=== PATIENT | female | born 1945 | race Caucasian/White ===

== ENCOUNTER 2019-01-30 15:29 | Observation (INO) ==
[2019-01-30] MEDS ORDERED: DUONEB (A & A) INH ONE (15:38)
[2019-01-30] MEDS ORDERED: SOLU-MEDROL IV ONE (15:39)
--- NOTE | 2019-01-30 15:45 | PROVIDER DOCUMENTATION ---
HPI-Respiratory General - General Chief Complaint: Shortness of Breath Stated Complaint: SOB Time Seen by Provider: 01/30/19 15:34 Source: patient Allergies/Adverse Reactions: Patient Allergies Allergy/AdvReac Type Severity Reaction Status Date / Time prednisone AdvReac "MAKES ME Verified 10/08/18 15:16 CRAZY" Home Medications: Home Medication List Medication Instructions Recorded Confirmed Last Taken Type Fluoxetine [Prozac] 20 mg PO DAILY 10/03/18 01/30/19 Unknown History Lorazepam [Ativan] 0.5 mg PO DIRECTED 10/03/18 10/08/18 Unknown History Albuterol Sulfate [Proventil Hfa] 2 puff IH Q4HR PRN #1 [id number] 10/08/1812/20 Unknown Rx Mirtazapine [Remeron] 30 mg PO HS 10/08/18 01/30/19 Unknown History Tramadol [Ultram] 50 mg PO Q6H PRN PRN 10/08/18 01/30/19 Unknown History - History of Present Illness-Resp Nature of Presenting Problem: 73yof present to ER via EMS with c/o SOB onset this morning. Pt on home O2 at 2L NC. Pt reports productive cough with yellow sputum. Denies fever. Denies CP. Quality of Pain: reports: none Onset/Duration: reports: this morning Cough Quality/Degree: reports: productive cough (yellow sputum) Current Respiratory Medication Therapy: Initiated see nurses note Associated Symptoms: reports: cough, nasal drainage, shortness of breath, wheezing. denies: fever/chills, hurts to breathe, hyperventilating Review of Systems - Adult - REVIEW OF SYSTEMS - ADULT Constitutional: reports: no symptoms reported. denies: chills, fever Eyes: reports: no symptoms reported Ears, Nose, Mouth & Throat: reports: no symptoms reported Cardiovascular: reports: no symptoms reported. denies: chest pain Respiratory: reports: see HPI, chronic cough, cough, dyspnea on exertion, shortness of breath, wheezing. denies: excessive sputum production, hemoptysis Gastrointestinal: reports: no symptoms reported. denies: diarrhea, nausea, vomiting Genitourinary: reports: no symptoms reported Musculoskeletal: reports: no symptoms reported Integumentary: reports: no symptoms reported Neurological: reports: no symptoms reported Psychiatric: reports: no symptoms reported Endocrine: reports: no symptoms reported Hematologic/Lymphatic: reports: no symptoms reported Allergic/Immunologic: reports: no symptoms reported All Other Systems: Reviewed and Negative Past History - Adult - PAST MEDICAL HISTORY-ADULT Review of Records: reports: Old Records Reviewed, Nursing Assessment Review, Medications Reviewed Major Childhood Illnesses: reports: denies history Cardiovascular: reports: HTN Respiratory: reports: denies history Gastrointestinal: reports: denies history Obstetrical/Gynecological: reports: denies history Genitourinary: reports: denies history Musculoskeletal: reports: denies history Neurological: reports: denies history Psychiatric: reports: depression Endocrine/Immune: reports: denies history Other Conditions: reports: denies history - PRIOR SURGERIES/PROCEDURES Surgical/Procedure History: reports: tonsillectomy - IMMUNIZATION STATUS Childhood Immunizations: See Nurse Assessment Flu Vaccine: See Nurse Assessment - FAMILY HISTORY Family History: reviewed, not pertinent Physical Exam-General - PHYSICAL EXAM-ADULT Initial Vital Signs Reviewed: Yes - CONSTITUTIONAL General Appearance: alert, mild distress - EYES Eyes: pink conjunctivae - HEAD, EARS, NOSE, MOUTH & THROAT HENMT: normal ENT inspection, TMs normal, pharynx normal, other (dry mucous membranes) - NECK Neck: full range of motion - RESPIRATORY Respiratory: chest non-tender, no pleuratic chest pain, respiratory distress ( mild), accessory muscle use, rales, wheezing, increased rate - CARDIOVASCULAR Cardiovascular: regular rate, rhythm - GASTROINTESTINAL (ABDOMEN) Abdominal Exam: normal bowel sounds, non tender, soft - LYMPHATIC Lymphatic: no adenopathy - MUSCULOSKELETAL Back Exam: normal inspection Extremity: normal range of motion, normal inspection, no pedal edema, no calf tenderness - SKIN Integumentary: normal color, warm/dry - PSYCHIATRIC Psych/Mental Status: oriented x 3 - HEART Score HEART Score: History: Slightly Suspicious HEART Score: ECG: Normal HEART Score: Age: > or = 65 Years HEART Score: Risk Factors for Atherosclerotic Disease: 1 or 2 Risk Factors HEART Score: Troponin: < or = Normal Limit Total HEART Score:: 3 Progress - PLAN OF CARE/RESULTS Progress/Plan/Lab Results: Vital Signs - 8 hr 01/30/19 15:30 01/30/19 16:31 01/30/19 16:37 Temperature 97.7 F Pulse Rate 71 73 69 Respiratory Rate 22 22 18 Blood Pressure 161/77 165/76 O2 Sat by Pulse Oximetry 96 96 98 01/30/19 16:55 01/30/19 17:36 Temperature Pulse Rate 64 65 Respiratory Rate 22 16 Blood Pressure 164/96 192/92 O2 Sat by Pulse Oximetry 98 97 Laboratory Results - last 24 hr 01/30/19 01/30/19 01/30/19 15:47 15:47 15:47 WBC 6.48 RBC 4.37 Hgb 12.5 Hct 40.8 MCV 93.4 MCH 28.6 MCHC 30.6 L RDW Std Deviation 13.8 Plt Count 361 MPV 10.2 Immature Gran % (Auto) 0.2 Neut % (Auto) 73.8 Lymph % (Auto) 16.0 L [place] % (Auto) 9.1 Eos % (Auto) 0.6 Baso % (Auto) 0.3 Immature Gran # (Auto) 0.01 Neut # (Auto) 4.78 Lymph # (Auto) 1.04 L [place] # (Auto) 0.59 Eos # (Auto) 0.04 Baso # (Auto) 0.02 Specimen Type Sample Site pH pCO2 pO2 HCO3 Base Excess Oxyhemoglobin ABG O2 Sat (Calculated) ABG O2 Saturation ABG Carboxyhemoglobin ABG Methemoglobin A-a O2 Difference Total Hemoglobin Lactate Liter Flow Blood Gas Modality FiO2 % Sodium 143 Potassium 4.4 Chloride 102 Carbon Dioxide 32 Anion Gap 9 BUN 30 H Creatinine 1.1 H Estimated GFR/1.73 m2 49 BUN/Creatinine Ratio 27 Glucose 209 H Calculated Osmolality 297 Calcium 9.2 Total Bilirubin 0.40 AST 17 ALT 14 Alkaline Phosphatase 64 Creatine Kinase 51 Troponin T Chx-X-Lyrpoiephin Pept Total Protein 7.9 Albumin 4.0 Globulin 4.0 Albumin/Globulin Ratio 1.0 Plasma Lactate 01/30/19 01/30/19 01/30/19 15:47 15:47 16:00 WBC RBC Hgb Hct MCV MCH MCHC RDW Std Deviation Plt Count MPV Immature Gran % (Auto) Neut % (Auto) Lymph % (Auto) [place] % (Auto) Eos % (Auto) Baso % (Auto) Immature Gran # (Auto) Neut # (Auto) Lymph # (Auto) [place] # (Auto) Eos # (Auto) Baso # (Auto) Specimen Type Sample Site pH pCO2 pO2 HCO3 Base Excess Oxyhemoglobin ABG O2 Sat (Calculated) ABG O2 Saturation ABG Carboxyhemoglobin ABG Methemoglobin A-a O2 Difference Total Hemoglobin Lactate Liter Flow Blood Gas Modality FiO2 % Sodium Potassium Chloride Carbon Dioxide Anion Gap BUN Creatinine Estimated GFR/1.73 m2 BUN/Creatinine Ratio Glucose Calculated Osmolality Calcium Total Bilirubin AST ALT Alkaline Phosphatase Creatine Kinase Troponin T < 0.010 Liq-L-Ajbutvmjgqi Pept 1099 H Total Protein Albumin Globulin Albumin/Globulin Ratio Plasma Lactate 1.0 01/30/19 17:17 WBC RBC Hgb Hct MCV MCH MCHC RDW Std Deviation Plt Count MPV Immature Gran % (Auto) Neut % (Auto) Lymph % (Auto) [place] % (Auto) Eos % (Auto) Baso % (Auto) Immature Gran # (Auto) Neut # (Auto) Lymph # (Auto) [place] # (Auto) Eos # (Auto) Baso # (Auto) Specimen Type ARTERIAL Sample Site R BRACHIAL pH 7.44 pCO2 52 H* pO2 67 HCO3 32.3 H Base Excess 9.5 H Oxyhemoglobin 94.0 L ABG O2 Sat (Calculated) 17.1 ABG O2 Saturation 94.4 L ABG Carboxyhemoglobin 0.00 L ABG Methemoglobin 0.4 A-a O2 Difference 68.0 Total Hemoglobin 12.9 Lactate 1.00 Liter Flow 2.0 Blood Gas Modality [place]ULA FiO2 % 28.0 Sodium Potassium Chloride Carbon Dioxide Anion Gap BUN Creatinine Estimated GFR/1.73 m2 BUN/Creatinine Ratio Glucose Calculated Osmolality Calcium Total Bilirubin AST ALT Alkaline Phosphatase Creatine Kinase Troponin T Rrg-S-Kspvpqhnkqy Pept Total Protein Albumin Globulin Albumin/Globulin Ratio Plasma Lactate Orders Category Date Time Status Nursing- Obtain EKG once Care 01/30/19 15:40 Active CHEST-2 VIEWS [RAD] Stat Exams 01/30/19 15:34 Completed ABG [RESP] Routine Lab 01/30/19 17:17 Completed BLOOD CULTURE [BLDCUL] Stat Lab 01/30/19 15:43 Ordered CBC WITH DIFF [HEME] Stat Lab 01/30/19 15:47 Completed CK PROFILE [SP CHEM] Stat Lab 01/30/19 15:47 Completed COMPREHENSIVE METABOLIC PANEL [CHEM] Stat Lab 01/30/19 15:47 Completed LACTATE, PLASMA [CHEM] Stat Lab 01/30/19 16:00 Completed PRO B-NATRIURETIC PEPTIDE Stat Lab 01/30/19 15:47 Completed TROPONIN T Stat Lab 01/30/19 15:47 Completed Albuterol 2.5MG/Ipratrop 0.5MG [Duoneb (A & A)] Med 01/30/19 15:38 Discontinued 3 ml INH NOW ONE Azithromycin 500 mg/Ns [Zithromax 500 mg/Ns] Med 01/30/19 18:00 Active 500 mg in 250 ml IV Q24H CefTRIAXONE [Rocephin] 1 gm Med 01/30/19 17:15 Active 0.9% Sodium Chloride Inj [Ns] 50 ml IV Q24H Diltiazem [Cardizem] Med 01/30/19 17:42 Once 30 mg PO NOW ONE Hydrocodone/APAP 5 mg/325 mg [Wolf-5] Med 01/30/19 17:43 Once 1 each PO NOW ONE Methylprednisolone Sod Succ [Solu-Medrol] Med 01/30/19 15:39 Discontinued 125 mg IV NOW ONE Aerosol Treatments Routine Oth 01/30/19 15:38 Completed Aerosol Treatments Stat Oth 01/30/19 15:38 Completed EKG [EKG] Stat Ther 01/30/19 15:40 Ordered Transfer/Admit Order [TRANSFER] Routine Transfer 01/30/19 17:04 Ordered Result Diagrams: 01/30/19 15:47 01/30/19 15:47 - REASSESSMENT Reassessment #1 Time Reassessed: 16:20 (Pt back from xray, will reassess following breathing tx. ) Reassessment #2 Time Reassessed: 16:53 (Wheezing has cleared. Lung sounds slightly diminished. Will call Dr Cortez for possible admission. Feel admission is optimal for pt due to age and comorbidities ) Status: improving Reassessment #3 Time Reassessed: 17:03 (Made pt aware of admission. Pt agrees with this treatment plan.) Reassessment #4 Time Reassessed: 17:44 Reassessment Comment: H/A AND BP190/: ORDER Wolf 5 an Cardizem 30mg po - EKG 1 Time of EKG reading by physician:: 15:34 EKG Read and Signed by:: Adryan Gaxiola Rate: 72 Rhythm: NSR Comments: possible left atrial enlargement - XRAY 1 XRAY Study: Chest Impression: See EMR Report (The cardiomediastinal silhouette is within normal limits. The pulmonary vasculature is not congested. There is obscuration of the right heart border suggesting infiltrate or atelectasis. No effusion. No pneumothorax. IMPRESSION: Right middle lobe atelectasis or consolidation. Electronically signed by Liberty Sepulveda 01/30/2019 4:49 PM) - CONSULTS/PCP/HOSPITALIST Notification #1 *Consult/PCP/Hospitalist*: Dr Cortez Time Discussed: 17:02 Consult Disposition: Admit Departure - Departure Date of Disposition Decision: 01/30/19 Time of Disposition Decision: 17:04 DIAGNOSIS: Pneumonia Qualifiers: Pneumonia type: due to unspecified organism Laterality: right Lung location: middle lobe of lung Qualified Code(s): J18.1 - Lobar pneumonia, unspecified organism Disposition: ADMITTED INPATIENT 09 Certified Medical Emergency: Emergent Condition: Fair Referrals and Follow-Ups: Mukul Cortez MD [Primary Care Provider] - - Critical Care Note This patient required my direct & personal management of CC.: No Attestation - Physician/ KYLE Attestation Patient care was provided by Advanced Practice Provider:: Yes Advanced Practice Provider:: Rehan Allen Advanced Practice Provider documentation review:: The Mid-level provider documentation, treatment plan and medical decision making was reviewed by the physician who agrees with all treatment and medical decision making by the MLP. The physician spent face to face time with patient:: No Advanced Practice Provider documentation review:: Supervising physician onsite and consulted in the evaluation and care of this patient. The physician did not have a face to face encounter with the patient.
[2019-01-30 15:55] LABS: BASO# 0.02 X1000 (0.0-0.2); BASO% 0.3 % (0.0-0.8); EOS# 0.04 X1000 (0.0-0.7); EOS% 0.6 % (0.0-10.0); HEMATOCRIT 40.8 % (37.0-47.0); HEMOGLOBIN 12.5 g/dL (12.0-16.0); IMM GRAN# 0.01 X1000 (0.0-0.04); IMM GRAN% 0.2 % (0.0-0.5); LYMPH# 1.04 X1000 (1.2-3.4); MCH 28.6 PG (27-31); MCHC 30.6 g/dL (33-37); MCV 93.4 FL (81-99); MONO# 0.59 X1000 (0.11-0.59); MONO% 9.1 % (1.7-9.3); MPV 10.2 FL (7.4-10.4); NEUT# 4.78 X1000 (1.4-6.5); NEUT% 73.8 % (42.2-75.2); PLT 361 X1000 (130-400); RBC 4.37 XMIL (4.2-5.4); RDW 13.8 % (11.5-14.5); WBC 6.48 X1000 (4.8-10.8)
[2019-01-30 16:19] LABS: CALCIUM 9.2 mg/dL (8.8-10.2); CREATININE 1.1 mg/dL (0.5-0.9); POTASSIUM 4.4 mmol/L (3.5-5.1); TOTAL BILIRUBIN 0.4 mg/dL (0.20-1.00); TOTAL PROTEIN 7.9 g/dL (6.3-8.3)
--- NOTE | 2019-01-30 16:51 | Diag Imaging Result Doc PS360 ---
EXAM: CHEST-2 VIEWS HISTORY: sob TECHNIQUE: PA and Lateral chest x-ray COMPARISON: 10/08/2018 FINDINGS: The cardiomediastinal silhouette is within normal limits. The pulmonary vasculature is not congested. There is obscuration of the right heart border suggesting infiltrate or atelectasis. No effusion. No pneumothorax. IMPRESSION: Right middle lobe atelectasis or consolidation. Electronically signed by Liberty Sepulveda 01/30/2019 4:49 PM
[2019-01-30] MEDS: ROCEPHIN 1 GM in NS 50 ML IV SCH (17:19)
[2019-01-30 17:29] LABS: BE 9.5 mmoll (-3.0-3.0); BLOOD TYPE ARTERIAL; HCO3-(ACT) 32.3 mmoll (20.0-26.0); METHB 0.4 % (0.0-1.5); O2(CT) 17.1 mL/dL (15.0-23.0); PO2(98.6) 67 mmHg (60-100); SAMPLE BLOOD; SAO2 94.4 % (95.0-100.0); THB 12.9 g/dL (11.5-17.4); pH(98.6) 7.44 (7.35-7.45)
[2019-01-30 17:33] LABS: PCO2(98.6) 52 mmHg (35-45)
[2019-01-30 17:34] LABS: MODALITY CANNULA
[2019-01-30] MEDS ORDERED: CARDIZEM PO ONE (17:42)
[2019-01-30] MEDS ORDERED: NORCO-5 PO ONE (17:43)
[2019-01-30] MEDS: ZITHROMAX 500 MG/NS 500 MG/250 ML IVPB IV SCH (20:50)
--- NOTE | 2019-01-31 08:37 | PROGRESS NOTE ---
DATE: 01/31/2019 A 73-year-old with COPD, patient of mine who presented to the emergency room complaining of shortness of breath. Brought in by EMS the morning of presentation. The patient is on home oxygen at 2 L nasal cannula. She reports she has been having a productive cough with yellow phlegm. Denies fever. Denies chest pain. This all seemed to sort of start earlier this morning, particularly the yellow phlegm. She has had some nasal drainage, cough, shortness of breath and wheezing. Denies fevers or chills. Denies any pleurisy, pleuritic symptoms. She presented with a 97.7 degrees temperature, pulse was 71, respiratory rate was 22, BP 151/77, O2 sat was 96%. Her CBC: Her white count 6,480, hematocrit was 40.8, platelet count was 361,000. Her sodium was 143, potassium 4.4, chloride 102, CO2 32, anion gap 9, BUN 30, creatinine 1.1. Estimated GFR of 49. BUN/creatinine ratio of 27. Glucose 209. Calculated osmolality 297. Calcium 9.2. Total bili 0.4. LFTs were normal. CK was normal. Plasma lactate was drawn and was 1. BNP was 1099. Troponin was less than 0.01. Blood gases, pH 7.44, PCO2 52, PO2 67. Carboxyhemoglobin was 0, pretty interesting. In the ER, she was given ceftriaxone, azithromycin, Albuterol ipratropium treatments, Diltiazem, 30 mg, hydrocodone and 125 of Solu-Medrol and was admitted to the hospital as a COPD exacerbation. Her EKG: Normal sinus rhythm at 72 with possible left atrial enlargement. Chest x- ray: Cardiac silhouette was within normal limits. Pulmonary vasculature was not congested. There was obscuration of the right heart border suggesting an infiltrate or atelectasis. No effusion. No pneumothorax. cc: Mukul Cortez MD
[2019-01-31] MEDS ORDERED: ZOFRAN IV ONE (11:57)
[2019-01-31] MEDS: ROCEPHIN 1 GM in NS 50 ML IV SCH (17:39)
[2019-01-31] MEDS ORDERED: DUONEB (A & A) INH ONE (17:48)
[2019-01-31] MEDS ORDERED: DUONEB (A & A) INH PRN (18:52)
[2019-01-31] MEDS ORDERED: ULTRAM PO PRN (18:52)
[2019-01-31] MEDS: DUONEB (A & A) INH SCH ×2 (19:59→22:24)
[2019-01-31] MEDS ORDERED: REMERON PO SCH ×2 (21:00)
[2019-01-31] MEDS: ATIVAN PO PRN (21:07)
[2019-01-31] MEDS: ZITHROMAX 500 MG/NS 500 MG/250 ML IVPB IV SCH (21:07)
[2019-02-01] MEDS: DUONEB (A & A) INH SCH ×3 (04:36→16:04)
[2019-02-01] MEDS ORDERED: PROZAC PO SCH (09:00)
--- NOTE | 2019-02-01 10:16 | Diag Imaging Result Doc PS360 ---
EXAM: CHEST-2 VIEWS INDICATION: abd cxr TECHNIQUE: 2 views COMPARISON: 01/30/2019 FINDINGS: The vague right middle lobe opacity suggesting mild atelectasis versus infiltrate is essentially stable given differences in technique. No new consolidation is identified. Cardiac silhouette is stable. IMPRESSION: Stable chest. Electronically signed by Vishal Lester 02/01/2019 10:13 AM
[2019-02-01] MEDS: ATIVAN PO PRN (14:31)
[2019-02-01 16:39] VITALS: BP 163/64
[2019-02-01 17:46] LABS: BILIRUBIN URINE NEGATIVE (NEGATIVE); BLOOD URINE NEGATIVE (NEGATIVE); CLARITY CLEAR (CLEAR); COLOR YELLOW; GLUCOSE URINE NEGATIVE (NEGATIVE); KETONE URINE TRACE mg/dL (NEGATIVE); LEUKOCYTES URINE 1+ (NEGATIVE); NITRITE URINE NEGATIVE (NEGATIVE); PH URINE 6.5; PROTEIN URINE TRACE mg/dL (NEGATIVE); SP GRAVITY URINE 1.015; UROBILINOGEN URINE NORMAL
[2019-02-01 17:53] LABS: URINE BACTERIA 1+ /HFP; URINE CAST WHITE CELL PRESENT /LPF; URINE CRYSTAL NONE SEEN /HPF; URINE EPITHELIAL CELLS <10 /HPF (<10); URINE SOURCE CLEAN CATCH; URINE YEAST NONE SEEN /HPF
[2019-02-01] MEDS: ROCEPHIN 1 GM in NS 50 ML IV SCH (17:57)
--- NOTE | 2019-02-02 11:11 | EKG Report ---
Test Performed on : 01/30/2019 3:34:05 PM Test Reason : sob Blood Pressure : / mmHG Vent. Rate : 072 BPM Atrial Rate : 072 BPM P-R Int : 176 ms QRS Dur : 078 ms QT Int : 414 ms P-R-T Axes : 072 049 061 degrees QTc Int : 453 ms Normal sinus rhythm. Possible Left atrial enlargement Borderline ECG When compared with ECG of 08-OCT-2018 15:58, No significant change was found Unconfirmed Result
--- NOTE | 2019-02-14 10:28 | HISTORY AND PHYSICAL ---
HISTORY OF PRESENT ILLNESS: The patient is a 73-year-old female that I seen on an irregular basis in the office who presented to the Emergency Room complaining of shortness of breath. On the day of admission this 73-year-old lady presented to the E.R. via EMS with the complaint of shortness of breath that had began earlier in the morning. The patient has COPD and has home O2 which she wears at 2 L per nasal cannula. She had that on and was running short of breath. She reports a cough productive of yellow phlegm. She denies any fever, chills, or rigors. She denies chest pain. This all seemed to start the morning of presentation with a productive cough and increase work of breathing. She also complained of nasal drainage and wheezing. She denied fever, chills, pleurisy, or hyperventilation. MEDICATIONS: She is on albuterol at home. She takes Prozac 20 mg, Ativan 0.5 mg as needed, Remeron 30 mg, and Tramadol 50 mg every 6 hours. VITAL SIGNS: When she arrived to the E.R. her temperature was 97.7, pulse 71, respiratory rate 22, BP 161/77, and O2 saturation 96%. DIAGNOSTIC DATA: Labs were drawn. CBC was fairly unremarkable. BUN was somewhat elevated at 30. Creatinine was 1.1. Electrolytes were normal. Otherwise, GFR was 49. BUN and creatinine ratio was 27. Glucose was 209. Calcium was 9.2, total bilirubin 0.4, AST 17, ALT 14, and ALK PHOS 64, CK 51, total protein 79, albumin 4, and globulin 4. Plasma lactate was 1. BNP was 1099. Troponin was less than 0.01. Blood gases: pH was 7.44, pCO2 52, and pO2 67 on 28%. O2 saturation was 94.4%. In the E.R. she was given some neb treatments, azithromycin every 24 hours, ceftriaxone 1 g every 24 hours, diltiazem, and a 1 time dose of 125 mg of methylprednisolone, and hydrocodone p.r.n. Her database also included the following imaging studies: She had a chest x-ray done on 01/30/2019 which showed a normal mediastinum. Pulmonary vasculature was not congested. There was blunting of the right heart border suggesting possible atelectasis or an infiltrate. No pneumothorax. Her EKG on presentation showed normal sinus rhythm, possible left atrial enlargement, and was otherwise negative. She was admitted and placed on albuterol/ipratropium every 4 hours p.r.n., methylprednisolone 125 mg one dose, regular ceftriaxone, and azithromycin. She was continued on her Remeron from home and fluoxetine from home. She was admitted on 01/30/2019 and discharged on 02/01/2019. Her blood cultures and urine culture all had no growth. VITAL SIGNS THROUGHOUT THE STAY: No temp was observed. Vital signs were stable, slightly hypertensive. She was given those medicines and we ended up discharging her with amoxicillin and her regular medications as a COPD exacerbation. cc: Mukul Cortez MD
--- NOTE | 2019-02-14 11:17 | DISCHARGE SUMMARY ---
ADMISSION DATE: 01/30/2019 DISCHARGE DATE: 02/01/2019 HISTORY OF PRESENT ILLNESS: She was admitted through the emergency room and stayed in the hospital until 02/01/2019. She has COPD who has home oxygen, lives in assisted living. She has a son who sees about her occasionally. On the day of presentation, she had increased work of breathing, coughing, producing some yellowish phlegm. She was cultured, and they were negative. CBC was unremarkable. Blood gases showed some CO2 retention, but this is typical for her. She was treated with broad spectrum antibiotics. We discharged her on amoxicillin as a COPD exacerbation. We will follow her as an outpatient. On 2 L that she wears at home, her pO2 of 67, pCO2 was 52, pH was 7.44. She is to follow up in the office. cc: Mukul Cortez MD
== END 2019-02-01 20:10 | disposition home or self-care (01) ==
LOC: P.ED 15:29 → P.MEDSURG 15:29
PROVIDERS: ADMIT Internal Medicine; ATTEND Internal Medicine
CPT/HCPCS: 71020; 71046; 80053; 81001; 82550; 82805; 83605; 83880; 84484; 85025; 87040; 87088; 93005; 94640; 94761; 96365; 96366; 96375; 96376; 99285; A9270; G0378; J0456; J0696; J2405; J2930